=== PATIENT | female | born 1970 | race Caucasian/White ===

== ENCOUNTER 2018-09-20 11:47 | Emergency (ER) | payer MEDICAID, OTHER ==
[~2018-09-20] VITALS: Ht 152.4 cm; Wt 56.7 kg
[2018-09-20 12:18] VITALS: BP 141/97
== END 2018-09-20 15:04 | disposition home or self-care (01) ==
LOC: ER 12:05
DX: H57.12 Ocular pain, left eye (principal); R51 Headache
CPT/HCPCS: 70450